=== PATIENT | female | born 1965 | race Caucasian/White ===

== ENCOUNTER 2017-08-15 15:39 | Inpatient (IN) | payer OTHER ==
[~2017-08-15] VITALS: Ht 177.8 cm; Wt 94.0 kg
[2017-08-15] MEDS ORDERED: ondansetron/PF 4mg/2ml inj IV ONE (16:10)
[2017-08-15] MEDS ORDERED: normal saline 1000ML IV soln IVB ONE (16:10)
[2017-08-15 16:26] LABS: ALANINE AMINOTRANSFERASE 28 U/L (12-78); ALBUMIN 3.6 G/DL (3.4-5.0); ALBUMIN/GLOBULIN RATIO 0.9 (1.1-1.5); ALKALINE PHOSPHATASE 100 IU/L (46-116); ANION GAP 10 (8-16); ASPARTATE AMINO TRANSFERASE 25 U/L (10-37); BILIRUBIN,TOTAL 0.5 MG/DL (0.1-1.0); BLOOD UREA NITROGEN 12 MG/DL (7-18); BUN/CREATININE RATIO 12.5 (6.6-38.0); CALCIUM 9.5 MG/DL (8.5-10.1); CHLORIDE 100 MMOL/L (99-107); CREATININE 0.96 MG/DL (0.40-0.90); GLUCOSE 156 MG/DL (70-104); POTASSIUM 3.6 MMOL/L (3.5-5.1); SODIUM 140 MMOL/L (135-145); TOTAL PROTEIN 7.5 G/DL (6.4-8.2); eGFR 61 ML/MIN
[2017-08-15] MEDS ORDERED: HYDROmorphone inj. 0.5 MG/0.5 ML DISP.SYRIN IV PRN (16:30)
[2017-08-15] MEDS ORDERED: fentaNYL/PF 50MCG/1 ML 2ML syringe IV ONE (17:35)
[2017-08-15] MEDS ORDERED: proCHLORperazine 10 MG/2 ml inj IV ONE ×2 (17:35→19:45)
[2017-08-15 17:52] LABS: BASOPHILS % (AUTO) 0.2 % (0-1); EOSINOPHILS # (AUTO) 0.1 X10'3 (0-0.9); EOSINOPHILS % (AUTO) 1.1 % (0-6); HEMATOCRIT 43.2 % (35.0-45.0); HEMOGLOBIN 14.6 g/dl (12.0-16.0); LYMPHOCYTES # (AUTO) 0.9 X10'3 (1.1-4.8); LYMPHOCYTES % (AUTO) 7.1 % (21-51); MEAN CORPUSCULAR HEMOGLOBIN 23.7 PG (27.0-31.0); MEAN CORPUSCULAR HGB CONC 33.9 % (33.0-36.5); MEAN CORPUSCULAR VOLUME 70.1 FL (78-98); MEAN PLATELET VOLUME 8.2 FL (7.4-10.4); MONOCYTES # (AUTO) 0.2 X10'3 (0-0.9); MONOCYTES % (AUTO) 1.4 % (2-12); NEUTROPHILS # (AUTO) 11.2 X10'3 (1.8-7.7); NEUTROPHILS % (AUTO) 90.2 % (42-75); PLATELET COUNT 246 X10'3 (140-440); RED BLOOD COUNT 6.16 X10'6 (4.20-5.60); RED CELL DISTRIBUTION WIDTH 14.6 % (11.5-14.5); WHITE BLOOD COUNT 12.4 X10'3 (4.5-11.0)
[2017-08-15 19:52] LABS: CLARITY,URINE SLIGHTLY CLOUDY (Clear); COLOR,URINE YELLOW (Yellow); GLUCOSE, URINE NEGATIVE (Neg); KETONES,URINE >=80 mg/dl (Neg); LEUKOCYTE ESTERASE ,URINE NEGATIVE (Neg); NITRITES, URINE NEGATIVE (Neg); OCCULT BLOOD,URINE TRACE-INTACT (Neg); PH,URINE 5.5 (4.8-8.0); PROTEIN,URINE TRACE mg/dl (Neg); UROBILINOGEN,URINE 0.2 E.U/dL (0.2-1.0)
[2017-08-15 19:54] LABS: UA COLLECTION TYPE CLN CATCH MIDSTREAM
[2017-08-15] MEDS ORDERED: magnesium hydroxide 30ml (MOM) UD suspension PO PRN (19:55)
[2017-08-15] MEDS ORDERED: vancomycin/NS 1 GM ADD-VANTAGE 250 ML IV ONE (19:55)
[2017-08-15] MEDS ORDERED: acetaminophen 325mg tablet PO PRN ×2 (19:55)
[2017-08-15] MEDS ORDERED: mag hydrox/Alum hydrox/simeth 30ml oral suspension PO PRN (19:55)
[2017-08-15] MEDS ORDERED: BENZ-16 PO (19:57)
[2017-08-15] MEDS ORDERED: OMEP40CA37 PO (19:57)
[2017-08-15] MEDS ORDERED: AMLO5TAB PO (19:57)
[2017-08-15] MEDS ORDERED: HYDR-569 PO (19:57)
[2017-08-15] MEDS ORDERED: LISI1TAB13 PO (19:57)
[2017-08-15] MEDS ORDERED: ONDA8TAB13 PO (19:57)
[2017-08-15] MEDS ORDERED: CALC-829 PO (19:57)
[2017-08-15] MEDS ORDERED: EXEM25TA5 PO (19:57)
[2017-08-15] MEDS ORDERED: DEXA0.5E2 PO (19:57)
[2017-08-15] MEDS ORDERED: LISI-604 PO (19:57)
[2017-08-15] MEDS ORDERED: MULT-933 PO (19:57)
[2017-08-15] MEDS ORDERED: MUPI22OI30 TP (19:57)
[2017-08-15] MEDS ORDERED: PREG50CA PO (19:57)
[2017-08-15] MEDS ORDERED: FURO-150 PO (19:57)
[2017-08-15] MEDS: piperacillin/tazo 3.375gm/50ml 50 ML IV SCH ×2 (20:00→21:14)
[2017-08-15 20:02] LABS: AMORPHOUS URATES 1+; BACTERIA,URINE FEW /HPF (Neg); MUCUS STRANDS MANY /LPF (Neg); RBC,URINE 0-2 /HPF (0-2); SQUAMOUS EPITHELIAL CELL,UR FEW /LPF (FEW); WBC,URINE 0-4 /HPF (0-4)
[2017-08-15 20:03] LABS: HYALINE CASTS 0-3 /LPF (NEGATIVE)
[2017-08-15] MEDS ORDERED: dexamethasone 0.5 mg/5ml unit-dose oral solution PO SCH (20:35)
[2017-08-15] MEDS ORDERED: metoclopramide 5 mg/ml inj IV PRN (20:40)
[2017-08-15] MEDS ORDERED: benzonatate 100mg capsule PO PRN (21:00)
[2017-08-15] MEDS ORDERED: vancomycin inj 1,250 MG in normal saline 250ml IV soln 250 ML IV SCH (21:00)
[2017-08-15] MEDS: normal saline 1000ml 1,000 ML IV SCH (21:14)
[2017-08-15] MEDS: HYDROmorphone/NS 1 mg/ml CADD 50 ML IV PRN ×2 (21:22→23:00)
[2017-08-15 22:35] VITALS: BP 136/73
[2017-08-16] VITALS: BP 132/76
[2017-08-16] MEDS: HYDROmorphone/NS 1 mg/ml CADD 50 ML IV PRN ×4 (01:00→17:49)
[2017-08-16] MEDS ORDERED: piperacillin/tazo 3.375gm/50ml 50 ML IV ONE (02:29)
[2017-08-16] MEDS: piperacillin/tazo 3.375gm/50ml 50 ML IV SCH ×4 (02:41→21:49)
[2017-08-16] MEDS: normal saline 1000ml 1,000 ML IV SCH ×2 (05:53→16:35)
[2017-08-16 06:42] LABS: BASOPHILS # (AUTO) 0.1 X10'3 (0-0.2); BASOPHILS % (AUTO) 1.1 % (0-1); EOSINOPHILS # (AUTO) 0.2 X10'3 (0-0.9); EOSINOPHILS % (AUTO) 1.6 % (0-6); HEMATOCRIT 37.9 % (35.0-45.0); HEMOGLOBIN 13.1 g/dl (12.0-16.0); LYMPHOCYTES % (AUTO) 10.3 % (21-51); MEAN CORPUSCULAR HEMOGLOBIN 23.9 PG (27.0-31.0); MEAN CORPUSCULAR HGB CONC 34.5 % (33.0-36.5); MEAN CORPUSCULAR VOLUME 69.3 FL (78-98); MEAN PLATELET VOLUME 8.1 FL (7.4-10.4); MONOCYTES # (AUTO) 0.6 X10'3 (0-0.9); MONOCYTES % (AUTO) 5.8 % (2-12); NEUTROPHILS # (AUTO) 8.2 X10'3 (1.8-7.7); NEUTROPHILS % (AUTO) 81.2 % (42-75); PLATELET COUNT 248 X10'3 (140-440); RED BLOOD COUNT 5.47 X10'6 (4.20-5.60); RED CELL DISTRIBUTION WIDTH 14.5 % (11.5-14.5); WHITE BLOOD COUNT 10.1 X10'3 (4.5-11.0)
[2017-08-16 07:00] VITALS: BP 140/84
[2017-08-16 07:03] LABS: GLUCOSE 173 MG/DL (70-104); POTASSIUM 3.1 MMOL/L (3.5-5.1); SODIUM 143 MMOL/L (135-145)
[2017-08-16 07:04] LABS: ALBUMIN 2.9 G/DL (3.4-5.0); ANION GAP 9 (8-16); BLOOD UREA NITROGEN 12 MG/DL (7-18); BUN/CREATININE RATIO 12.8 (6.6-38.0); CALCIUM 8.8 MG/DL (8.5-10.1); CHLORIDE 106 MMOL/L (99-107); CREATININE 0.94 MG/DL (0.40-0.90); TOTAL CARBON DIOXIDE 28.2 MMOL/L (24-32); eGFR 62 ML/MIN
[2017-08-16] MEDS: Exemestane 25 MG TAB PO SCH (08:00)
[2017-08-16] MEDS ORDERED: non-formulary drug (Lisinopril/Hydrochlorothiazide (Lisinopril-Hctz 20-25 mg Tab) 1 TAB) PO SCH (08:00)
[2017-08-16] MEDS: furosemide 20MG tablet PO SCH (08:00)
[2017-08-16] MEDS: pantoprazole 40mg Tablet.DR PO SCH (08:28)
[2017-08-16] MEDS: lisinopril 20mg tablet PO SCH (08:28)
[2017-08-16] MEDS: HYDROchlorothiazide 25mg tablet PO SCH (08:28)
[2017-08-16] MEDS: multivitamins, therapeutics tablet PO SCH (08:28)
[2017-08-16] MEDS: pregabalin 25mg capsule PO SCH ×2 (08:28→21:51)
[2017-08-16] MEDS: amLODIPine 5mg tablet PO SCH (08:30)
[2017-08-16 08:58] LABS: MICROCYTOSIS 2+; PLATELET ESTIMATE NORMAL; POIKILOCYTOSIS 1+
[2017-08-16] MEDS: vancomycin/NS 1 GM ADD-VANTAGE 250 ML IV SCH ×2 (08:59→16:35)
[2017-08-16 09:17] LABS: BURR CELLS FEW; ELLIPTOCYTES FEW; SCHISTOCYTES FEW
[2017-08-16 12:00] VITALS: BP 147/89
[2017-08-16] MEDS ORDERED: magnesium Cl slow-release 64mg tablet PO PRN (12:40)
[2017-08-16] MEDS ORDERED: magnesium 2GM in 50ml NS 50 ML IV PRN (12:40)
[2017-08-16] MEDS ORDERED: potassium Cl 20 mEq SR tablet PO PRN ×2 (12:40)
[2017-08-16] MEDS ORDERED: magnesium 4gm in 100ml NS 100 ML IV PRN (12:40)
[2017-08-16] MEDS: potassium Cl 40MEQ/NS 500ml 500 ML IV PRN (18:18)
[2017-08-16] MEDS: ondansetron/PF 4mg/2ml inj IV PRN (19:32)
[2017-08-16 20:00] VITALS: BP 141/89
[2017-08-16] MEDS: HYDROmorphone/NS 1 mg/ml CADD 50 ML IV SCH ×3 (20:13→23:00)
[2017-08-16] MEDS ORDERED: naloxone 0.4 mg/ml inj IV PRN (20:15)
[2017-08-16] MEDS ORDERED: CADD PCA waste documentation MC SCH (20:15)
[2017-08-17] VITALS: BP 140/75
[2017-08-17] MEDS: HYDROmorphone/NS 1 mg/ml CADD 50 ML IV SCH ×12 (01:00→23:00)
[2017-08-17] MEDS: vancomycin/NS 1 GM ADD-VANTAGE 250 ML IV SCH ×2 (01:11→10:02)
[2017-08-17] MEDS: normal saline 1000ml 1,000 ML IV SCH ×3 (01:53→14:40)
[2017-08-17] MEDS: piperacillin/tazo 3.375gm/50ml 50 ML IV SCH ×4 (03:15→20:03)
[2017-08-17 06:10] LABS: BASOPHILS % (AUTO) 0.3 % (0-1); EOSINOPHILS # (AUTO) 0.1 X10'3 (0-0.9); EOSINOPHILS % (AUTO) 1.3 % (0-6); HEMATOCRIT 37.3 % (35.0-45.0); HEMOGLOBIN 12.7 g/dl (12.0-16.0); LYMPHOCYTES # (AUTO) 0.9 X10'3 (1.1-4.8); LYMPHOCYTES % (AUTO) 8.2 % (21-51); MEAN CORPUSCULAR HEMOGLOBIN 23.9 PG (27.0-31.0); MEAN CORPUSCULAR HGB CONC 33.9 % (33.0-36.5); MEAN CORPUSCULAR VOLUME 70.5 FL (78-98); MEAN PLATELET VOLUME 8.4 FL (7.4-10.4); MONOCYTES # (AUTO) 0.7 X10'3 (0-0.9); MONOCYTES % (AUTO) 6.2 % (2-12); NEUTROPHILS # (AUTO) 9.2 X10'3 (1.8-7.7); PLATELET COUNT 231 X10'3 (140-440); RED BLOOD COUNT 5.29 X10'6 (4.20-5.60); RED CELL DISTRIBUTION WIDTH 14.9 % (11.5-14.5); WHITE BLOOD COUNT 10.9 X10'3 (4.5-11.0)
[2017-08-17 06:46] LABS: ALBUMIN 2.6 G/DL (3.4-5.0); ANION GAP 8 (8-16); BLOOD UREA NITROGEN 9 MG/DL (7-18); BUN/CREATININE RATIO 8.9 (6.6-38.0); CALCIUM 8.5 MG/DL (8.5-10.1); CHLORIDE 107 MMOL/L (99-107); CREATININE 1.01 MG/DL (0.40-0.90); GLUCOSE 152 MG/DL (70-104); MAGNESIUM 1.7 MG/DL (1.5-2.4); POTASSIUM 3.1 MMOL/L (3.5-5.1); SODIUM 144 MMOL/L (135-145); TOTAL CARBON DIOXIDE 28.9 MMOL/L (24-32); eGFR 57 ML/MIN
[2017-08-17 07:09] VITALS: BP 140/82
[2017-08-17] MEDS: lisinopril 20mg tablet PO SCH (07:53)
[2017-08-17] MEDS: pregabalin 25mg capsule PO SCH ×2 (07:53→20:03)
[2017-08-17] MEDS: HYDROchlorothiazide 25mg tablet PO SCH (07:54)
[2017-08-17] MEDS: multivitamins, therapeutics tablet PO SCH (07:54)
[2017-08-17] MEDS: amLODIPine 5mg tablet PO SCH (07:54)
[2017-08-17] MEDS: pantoprazole 40mg Tablet.DR PO SCH (07:54)
[2017-08-17] MEDS: furosemide 20MG tablet PO SCH (07:55)
[2017-08-17] MEDS: Exemestane 25 MG TAB PO SCH (07:55)
[2017-08-17] MEDS: proCHLORperazine 10 MG/2 ml inj IV PRN ×2 (07:59→19:45)
[2017-08-17] MEDS ORDERED: VANCOMYCIN LEVEL IV ONE (08:30)
[2017-08-17] MEDS ORDERED: VANCOMYCIN LEVEL IV NR (08:30)
[2017-08-17 12:00] VITALS: BP 160/92
[2017-08-17] MEDS: potassium bicarbonate/cit acid 25mEq tablet.effervescent PO SCH ×3 (16:00→18:34)
[2017-08-17] MEDS: ondansetron/PF 4mg/2ml inj IV PRN (16:32)
[2017-08-17] MEDS ORDERED: vancomycin inj 1,250 MG in normal saline 250ml IV soln 250 ML IV SCH (17:00)
[2017-08-17 19:30] VITALS: BP 160/85
[2017-08-17] MEDS: lactobacillus rhamnosus 10,000 MMU CELLS/CAPSULE PO SCH (20:03)
[2017-08-17] MEDS: potassium Cl 40MEQ/NS 500ml 500 ML IV PRN (21:08)
[2017-08-18] VITALS: BP 159/82
[2017-08-18] MEDS: HYDROmorphone/NS 1 mg/ml CADD 50 ML IV SCH ×12 (01:00→23:00)
[2017-08-18] MEDS: piperacillin/tazo 3.375gm/50ml 50 ML IV SCH ×4 (01:57→20:17)
[2017-08-18] MEDS: proCHLORperazine 10 MG/2 ml inj IV PRN ×3 (04:21→22:43)
[2017-08-18 05:52] LABS: BASOPHILS % (AUTO) 0.1 % (0-1); EOSINOPHILS # (AUTO) 0.2 X10'3 (0-0.9); EOSINOPHILS % (AUTO) 2.1 % (0-6); HEMATOCRIT 39.2 % (35.0-45.0); HEMOGLOBIN 13.4 g/dl (12.0-16.0); LYMPHOCYTES # (AUTO) 0.9 X10'3 (1.1-4.8); LYMPHOCYTES % (AUTO) 9.7 % (21-51); MEAN CORPUSCULAR HEMOGLOBIN 23.7 PG (27.0-31.0); MEAN CORPUSCULAR HGB CONC 34.1 % (33.0-36.5); MEAN CORPUSCULAR VOLUME 69.5 FL (78-98); MEAN PLATELET VOLUME 8.3 FL (7.4-10.4); MONOCYTES # (AUTO) 0.6 X10'3 (0-0.9); MONOCYTES % (AUTO) 6.3 % (2-12); NEUTROPHILS # (AUTO) 7.8 X10'3 (1.8-7.7); NEUTROPHILS % (AUTO) 81.8 % (42-75); PLATELET COUNT 230 X10'3 (140-440); RED BLOOD COUNT 5.64 X10'6 (4.20-5.60); RED CELL DISTRIBUTION WIDTH 14.6 % (11.5-14.5); WHITE BLOOD COUNT 9.5 X10'3 (4.5-11.0)
[2017-08-18 06:24] LABS: ALANINE AMINOTRANSFERASE 18 U/L (12-78); ALBUMIN 2.8 G/DL (3.4-5.0); ALBUMIN/GLOBULIN RATIO 0.8 (1.1-1.5); ALKALINE PHOSPHATASE 56 IU/L (46-116); ANION GAP 9 (8-16); ASPARTATE AMINO TRANSFERASE 16 U/L (10-37); BILIRUBIN,DIRECT 0.1 MG/DL (0-0.3); BILIRUBIN,TOTAL 0.6 MG/DL (0.1-1.0); BLOOD UREA NITROGEN 8 MG/DL (7-18); BUN/CREATININE RATIO 8.3 (6.6-38.0); CALCIUM 8.6 MG/DL (8.5-10.1); CHLORIDE 103 MMOL/L (99-107); CREATININE 0.96 MG/DL (0.40-0.90); GLUCOSE 148 MG/DL (70-104); MAGNESIUM 1.7 MG/DL (1.5-2.4); SODIUM 141 MMOL/L (135-145); TOTAL PROTEIN 6.2 G/DL (6.4-8.2); eGFR 61 ML/MIN
[2017-08-18 06:30] LABS: POTASSIUM 2.6 MMOL/L (3.5-5.1)
[2017-08-18 07:00] VITALS: BP 172/88
[2017-08-18] MEDS: multivitamins, therapeutics tablet PO SCH (07:24)
[2017-08-18] MEDS: pantoprazole 40mg Tablet.DR PO SCH (07:24)
[2017-08-18] MEDS: amLODIPine 5mg tablet PO SCH (07:25)
[2017-08-18] MEDS: pregabalin 25mg capsule PO SCH ×2 (07:25→20:17)
[2017-08-18] MEDS: Exemestane 25 MG TAB PO SCH (07:25)
[2017-08-18] MEDS: lactobacillus rhamnosus 10,000 MMU CELLS/CAPSULE PO SCH ×2 (07:25→20:17)
[2017-08-18] MEDS: normal saline 1000ml 1,000 ML IV SCH (07:26)
[2017-08-18] MEDS: furosemide 20MG tablet PO SCH (07:50)
[2017-08-18] MEDS: lisinopril 20mg tablet PO SCH (09:30)
[2017-08-18] MEDS: potassium Cl 40MEQ/NS 500ml 500 ML IV PRN ×2 (09:33→15:07)
[2017-08-18 12:00] VITALS: BP 150/83
[2017-08-18] MEDS ORDERED: VANCOMYCIN LEVEL IV NR (16:30)
[2017-08-18] MEDS: DEXTROSE 5% IV SCH (16:53)
[2017-08-18] MEDS: sucralfate 1gm/10ml UD suspension PO SCH ×2 (16:53→20:17)
[2017-08-18] MEDS: 1/2 NORMAL SALINE IV SCH (16:53)
[2017-08-18] MEDS: POTASSIUM CL IV SCH (16:53)
[2017-08-18 20:00] VITALS: BP 141/85
[2017-08-18] MEDS: ondansetron/PF 4mg/2ml inj IV PRN (20:14)
[2017-08-18] MEDS: simethicone 80mg chew tab PO SCH (20:17)
[2017-08-18] MEDS ORDERED: potassium Cl 40MEQ/NS 500ml 500 ML IV ONE (23:54)
[2017-08-19] VITALS: BP 156/90
[2017-08-19] MEDS: HYDROmorphone/NS 1 mg/ml CADD 50 ML IV SCH ×12 (01:00→23:00)
[2017-08-19] MEDS: piperacillin/tazo 3.375gm/50ml 50 ML IV SCH ×3 (01:52→13:19)
[2017-08-19] MEDS: ondansetron/PF 4mg/2ml inj IV PRN ×2 (04:05→19:23)
[2017-08-19 05:27] LABS: BASOPHILS % (AUTO) 0.1 % (0-1); EOSINOPHILS # (AUTO) 0.3 X10'3 (0-0.9); EOSINOPHILS % (AUTO) 3.7 % (0-6); HEMOGLOBIN 12.2 g/dl (12.0-16.0); LYMPHOCYTES # (AUTO) 1.3 X10'3 (1.1-4.8); LYMPHOCYTES % (AUTO) 14.2 % (21-51); MEAN CORPUSCULAR HEMOGLOBIN 23.9 PG (27.0-31.0); MEAN CORPUSCULAR HGB CONC 33.8 % (33.0-36.5); MEAN CORPUSCULAR VOLUME 70.7 FL (78-98); MEAN PLATELET VOLUME 8.3 FL (7.4-10.4); MONOCYTES # (AUTO) 0.7 X10'3 (0-0.9); MONOCYTES % (AUTO) 7.6 % (2-12); NEUTROPHILS # (AUTO) 6.9 X10'3 (1.8-7.7); NEUTROPHILS % (AUTO) 74.4 % (42-75); PLATELET COUNT 239 X10'3 (140-440); RED BLOOD COUNT 5.09 X10'6 (4.20-5.60); RED CELL DISTRIBUTION WIDTH 14.8 % (11.5-14.5); WHITE BLOOD COUNT 9.3 X10'3 (4.5-11.0)
[2017-08-19 05:50] LABS: ALBUMIN 2.6 G/DL (3.4-5.0); ANION GAP 8 (8-16); BLOOD UREA NITROGEN 6 MG/DL (7-18); BUN/CREATININE RATIO 7.2 (6.6-38.0); CALCIUM 8.4 MG/DL (8.5-10.1); CHLORIDE 107 MMOL/L (99-107); CREATININE 0.83 MG/DL (0.40-0.90); GLUCOSE 125 MG/DL (70-104); MAGNESIUM 1.7 MG/DL (1.5-2.4); POTASSIUM 3.2 MMOL/L (3.5-5.1); SODIUM 143 MMOL/L (135-145); TOTAL CARBON DIOXIDE 28.3 MMOL/L (24-32); eGFR 72 ML/MIN
[2017-08-19] MEDS: proCHLORperazine 10 MG/2 ml inj IV PRN (08:15)
[2017-08-19] MEDS: sucralfate 1gm/10ml UD suspension PO SCH ×4 (08:17→20:37)
[2017-08-19] MEDS: pregabalin 25mg capsule PO SCH ×2 (08:18→19:22)
[2017-08-19] MEDS: simethicone 80mg chew tab PO SCH ×3 (08:18→20:37)
[2017-08-19] MEDS: lactobacillus rhamnosus 10,000 MMU CELLS/CAPSULE PO SCH ×2 (08:18→19:22)
[2017-08-19] MEDS: lisinopril 20mg tablet PO SCH (08:19)
[2017-08-19] MEDS: multivitamins, therapeutics tablet PO SCH (08:19)
[2017-08-19] MEDS: amLODIPine 5mg tablet PO SCH (08:19)
[2017-08-19] MEDS: pantoprazole 40mg Tablet.DR PO SCH (08:19)
[2017-08-19 08:32] VITALS: BP 156/91
[2017-08-19] MEDS: Exemestane 25 MG TAB PO SCH (09:24)
[2017-08-19] MEDS: potassium Cl 40MEQ/NS 500ml 500 ML IV PRN (09:24)
[2017-08-19] MEDS: 1/2 NORMAL SALINE IV SCH (11:53)
[2017-08-19] MEDS: DEXTROSE 5% IV SCH (11:53)
[2017-08-19] MEDS: POTASSIUM CL IV SCH (11:53)
[2017-08-19 12:14] VITALS: BP 148/85
[2017-08-19 20:00] VITALS: BP 143/86
[2017-08-19] MEDS: metroNIDAZOLE 500mg tablet PO SCH (20:37)
[2017-08-20] VITALS: BP 128/66
[2017-08-20] MEDS: DEXTROSE 5% IV SCH (00:06)
[2017-08-20] MEDS: 1/2 NORMAL SALINE IV SCH (00:06)
[2017-08-20] MEDS: POTASSIUM CL IV SCH (00:06)
[2017-08-20] MEDS: HYDROmorphone/NS 1 mg/ml CADD 50 ML IV SCH ×6 (01:00→11:00)
[2017-08-20] MEDS: sucralfate 1gm/10ml UD suspension PO SCH ×2 (07:33→11:36)
[2017-08-20] MEDS: pregabalin 25mg capsule PO SCH (07:34)
[2017-08-20] MEDS: multivitamins, therapeutics tablet PO SCH (07:34)
[2017-08-20] MEDS: lisinopril 20mg tablet PO SCH (07:34)
[2017-08-20] MEDS: pantoprazole 40mg Tablet.DR PO SCH (07:34)
[2017-08-20] MEDS: simethicone 80mg chew tab PO SCH (07:34)
[2017-08-20] MEDS: metroNIDAZOLE 500mg tablet PO SCH ×2 (07:34→13:29)
[2017-08-20] MEDS: amLODIPine 5mg tablet PO SCH (07:34)
[2017-08-20] MEDS: lactobacillus rhamnosus 10,000 MMU CELLS/CAPSULE PO SCH (07:34)
[2017-08-20] MEDS: Exemestane 25 MG TAB PO SCH (07:35)
[2017-08-20 07:48] VITALS: BP 147/79
[2017-08-20] MEDS ORDERED: magnesium 4gm in 100ml NS 100 ML IV PRN (09:15)
[2017-08-20] MEDS ORDERED: magnesium Cl slow-release 64mg tablet PO PRN (09:15)
[2017-08-20] MEDS ORDERED: potassium Cl 20 mEq SR tablet PO PRN (09:15)
[2017-08-20] MEDS ORDERED: magnesium 2GM in 50ml NS 50 ML IV PRN (09:15)
[2017-08-20] MEDS ORDERED: potassium Cl 40MEQ/NS 500ml 500 ML IV PRN ×2 (09:15)
[2017-08-20] MEDS: potassium Cl 20 mEq SR tablet PO PRN ×2 (09:34→13:29)
[2017-08-20 11:48] VITALS: BP 132/72
[2017-08-20] MEDS ORDERED: METR500T4 PO (13:07)
[2017-08-20] MEDS ORDERED: OMEP40CA37 PO (13:07)
[2017-08-20] MEDS ORDERED: heparin sodium, porcine/PF 100unit/ml 5ML syringe IV ONE ×2 (13:50→13:55)
== END 2017-08-20 15:45 | disposition home or self-care (01) | DRG 445 ==
LOC: ER 15:40 → ED HOLD 19:53 → SUR 3N 22:30
PROVIDERS: ADMIT Internal Medicine; ATTEND Internal Medicine
DX: K81.9 Cholecystitis, unspecified (principal); A09 Infectious gastroenteritis and colitis, unspecified; C78.5 Secondary malignant neoplasm of large intestine and rectum; C50.919 Malignant neoplasm of unspecified site of unspecified female breast; M19.90 Unspecified osteoarthritis, unspecified site; R73.9 Hyperglycemia, unspecified; K43.9 Ventral hernia without obstruction or gangrene; I10 Essential (primary) hypertension; T38.0X5A Adverse effect of glucocorticoids and synthetic analogues, initial encounter; Z90.12 Acquired absence of left breast and nipple; Z90.710 Acquired absence of both cervix and uterus; Y92.89 Other specified places as the place of occurrence of the external cause; Z88.1 Allergy status to other antibiotic agents; Z88.6 Allergy status to analgesic agent; Z88.8 Allergy status to other drugs, medicaments and biological substances; Z90.49 Acquired absence of other specified parts of digestive tract
CPT/HCPCS: 36415; 74176; 76700; 80048; 80053; 80076; 80202; 81001; 83690; 83735; 84132; 85025; 87045; 87046; 87070; 89055; 96361; 96374; 96375; 99285; A6257; A6258; J0780; J1170; J1642; J2405; J2543; J3010; J3370; J3480; J3490; J7030